=== PATIENT | female | born 1995 | race Two or more races ===

== ENCOUNTER 2025-04-27 15:12 | Emergency (ER) | payer OTHER ==
[~2025-04-27] VITALS: Ht 162.6 cm; Wt 59.0 kg
[2025-04-27 15:46] LABS: BASOPHILS # (AUTO) 0.1 K/uL (0.0-0.2); BASOPHILS % (AUTO) 0.5 % (0.0-2.0); EOSINOPHILS # (AUTO) 0.1 K/uL (0.0-0.7); EOSINOPHILS % (AUTO) 0.5 % (0.0-6.0); HEMATOCRIT 38 % (33-45); HEMOGLOBIN 12.6 g/dL (11.5-14.8); LYMPHOCYTES # (AUTO) 1.4 K/uL (0.8-4.8); LYMPHOCYTES % (AUTO) 9.2 % (20.0-44.0); MEAN CORPUSCULAR HEMOGLOBIN 29 PG (26.0-33.0); MEAN CORPUSCULAR HGB CONC 34 g/dl (31.0-36.0); MEAN CORPUSCULAR VOLUME 87 fL (82-100); MONOCYTES # (AUTO) 1.1 K/uL (0.1-1.30); MONOCYTES % (AUTO) 6.9 % (2.0-12.0); NEUTROPHILS # (AUTO) 12.8 K/uL (1.8-8.9); NEUTROPHILS % (AUTO) 82.9 % (43.0-81.0); PLATELET COUNT (AUTO) 341 K/uL (150-450); RED BLOOD CELL COUNT(AUTO) 4.31 MIL/uL (4.0-5.2); RED CELL DISTRIBUTION WIDTH 13.6 % (11.5-15.0); WHITE BLOOD COUNT (AUTO) 15.4 K/uL (4.3-11.0)
[2025-04-27 16:03] LABS: CALCIUM, SERUM 9.1 mg/dL (8.5-10.1); CREATININE 0.8 mg/dL (0.6-1.3); POTASSIUM 3.5 mmol/L (3.5-5.1)
[2025-04-27 16:06] LABS: APPEARANCE,URINE CLEAR (CLEAR); BILIRUBIN,URINE Negative (NEGATIVE); BLOOD, URINE Moderate Ery/uL (NEGATIVE); COLOR,URINE YELLOW (YELLOW); KETONES,URINE >=160 mg/dL (NEGATIVE); LEUKOCYTE ESTERASE ,URINE Negative (NEGATIVE); PH,URINE 7.5 (5.0-8.0); PROTEIN,URINE 30 mg/dl (NEGATIVE); UGLUCOSE Negative (NEGATIVE); UROBILINOGEN,URINE 0.2 EU/dL (0.2)
[2025-04-27 16:12] LABS: NITRITE, URINE NEGATIVE (NEGATIVE)
[2025-04-27 16:14] LABS: ALBUMIN 4.2 g/dL (3.4-5.0); BILIRUBIN,DIRECT 0.3 mg/dL (0.0-0.2); BILIRUBIN,TOTAL 1.7 mg/dL (0.2-1.0); TOTAL PROTEIN, SERUM 7.9 g/dL (6.4-8.2)
[2025-04-27 16:15] LABS: ADD URINE CULTURE NO; BACTERIA,URINE Few /HPF (None Seen); PREGNANCY TEST URINE QUAL NEGATIVE (NEGATIVE); SQUAMOUS EPITHELIAL CELL,UR Few /HPF (None Seen)
[2025-04-27] MEDS ORDERED: KETOROLAC TROMETHAMINE INJ 30 MG/ML VIAL ONE (16:16)
[2025-04-27] MEDS ORDERED: ONDANSETRON HCL/PF 4 MG/2 ML VIAL ONE (16:16)
[2025-04-27] MEDS ORDERED: ACETAMINOPHEN ES 500 MG TABLET ONE (16:17)
[2025-04-27] MEDS: ONDANSETRON HCL/PF 4 MG/2 ML VIAL IVP ONE (16:38)
[2025-04-27] MEDS: KETOROLAC TROMETHAMINE 15 MG/ML VIAL IV ONE (16:38)
[2025-04-27] MEDS: ACETAMINOPHEN ES 500 MG TABLET PO ONE (16:39)
[2025-04-27 16:45] LABS: THYROID STIMULATING HORMONE 5.72 uIU/mL (0.358-3.74)
[2025-04-27] MEDS ORDERED: ONDA4TAB11 PO (17:28)
[2025-04-27 17:42] VITALS: BP 127/70; TEMP 98.3; O2SAT 98
== END 2025-04-27 17:42 | disposition home or self-care (01) ==
LOC: ER 15:19
DX: R10.30 Lower abdominal pain, unspecified (principal); R11.0 Nausea; D72.829 Elevated white blood cell count, unspecified; F17.200 Nicotine dependence, unspecified, uncomplicated; E06.3 Autoimmune thyroiditis
CPT/HCPCS: 36415; 76856-TC; 80048-TC; 80076-TC; 81001; 83690-TC; 84439-TC; 84443-TC; 84703-TC; 85025-TC; J1885; J2405